=== PATIENT | male | born 1980 | race Caucasian/White ===

== ENCOUNTER 2018-12-24 21:34 | Emergency (ER) | payer OTHER ==
[2018-12-25] MEDS: KETOROLAC 60 MG INJ IM (02:01)
== END 2018-12-25 03:02 | disposition home or self-care (01) ==
LOC: FTE 12-25 03:02
DX: G44.209 Tension-type headache, unspecified, not intractable (principal); F17.210 Nicotine dependence, cigarettes, uncomplicated
CPT/HCPCS: 96372; 99284-25